=== PATIENT | male | born 1960 | race Caucasian/White ===

== ENCOUNTER 2023-08-22 18:16 | Emergency (ER) | payer MEDICARE, SELFPAY ==
--- NOTE | ~2023-08-22 | XR_ITS ---
EXAMINATION: XR chest 2V Exam Date/Time: 08/22/2023 18:55 CDT HISTORY: COUGH Comparison: None. RESULT: Lines, tubes, and devices: None. Lungs and pleura: Clear. Cardiomediastinal silhouette: Normal. Other: No acute osseous or upper abdominal finding. IMPRESSION: No acute cardiopulmonary process. Reviewed, dictated and finalized at location K.
[2023-08-22 18:27] VITALS: BP 134/88; PULSE 116; RESP 16; TEMP 37.2; O2SAT 100
--- NOTE | 2023-08-22 18:42 | ED.URI ---
HPI - URI/Sore Throat General Chief Complaint: Upper Respiratory Infection Stated Complaint: Sore Throat/Cough/Headache Time Seen by Provider: 08/22/23 18:40 Source: patient, RN notes reviewed and old records reviewed Mode of arrival: ambulatory Limitations: no limitations History of Present Illness HPI Narrative: 63 year old male who presents to [facility] care accompanied by with complaints of sore throat, cough, and headache since yesterday. Patient reports that he had a fever 101F earlier today but has not taken any medication with low grade temp only since awakening later in day. Patient has tight non- productive cough also. Patient reports that few weeks ago felt himself going in and out of a fib has cardiac history and stents. Patient reports that he has not felt those sensation lately does have cardiology appointment in 2 weeks. MD elicited complaint: cough and sore throat Onset (ago): day(s) (day 2 of symptoms) Pain scale (0-10): 2 Description of mucous: clear Treatments prior to arrival: none Related Data Home Medications Medication Instructions Recorded Confirmed aspirin 81 mg tablet,delayed 81 mg PO DAILY 03/16/23 08/22/23 release empagliflozin 25 mg tablet 25 mg PO DAILY 03/16/23 08/22/23 (Jardiance) insulin glargine U-300 conc 300 30 unit subcut DAILY 03/16/23 08/22/23 unit/mL (3 mL) subcutaneous pen (Toujeo Max U-300 SoloStar) lisinopril 5 mg tablet 5 mg PO DAILY 03/16/23 08/22/23 metoprolol succinate 50 mg capsule 50 mg PO DAILY 03/16/23 08/22/23 sprinkle, ext. release 24 hr multivitamin (Daily Multi-Vitamin 1 tablet PO DAILY 04/10/23 08/22/23 tablet) rivaroxaban 20 mg tablet (Xarelto) 20 mg PO DAILY 04/10/23 08/22/23 semaglutide 2 mg/dose (8 mg/3 mL) 2 mg subcut WEEKLY 04/28/23 08/22/23 subcutaneous pen injector (Ozempic) Allergies Allergy/AdvReac Type Severity Reaction Status Date / Time Penicillins Allergy Severe Anaphylaxis Verified 08/22/23 18:18 adhesive tape AdvReac Mild Rash Verified 08/22/23 18:18 Review of Systems Review of Systems: CONSTITUTIONAL: Reports malaise, chills, sweats, or fever. EYES: Denies visual changes, redness, or discharge. ENT: Reports rhinorrhea, congestion, sinus pain, no otalgia and positive for sore throat. CARDIOVASCULAR: Denies chest pain, palpitations, or edema. RESPIRATORY: Reports harsh cough.? Denies acute dyspnea. GASTROINTESTINAL: Denies abdominal pain, nausea, vomiting, diarrhea SKIN: Denies rash or itching. MUSCULOSKELETAL: Denies myalgia. NEUROLOGIC: Reports headache. All systems reviewed & are unremarkable except as noted in HPI and below PMFSH Past Medical History Medical History Anxiety Atrial fibrillation Congestive heart disease Coronary artery disease Diabetes DKA (diabetic ketoacidosis) GERD (gastroesophageal reflux disease) Heart attack Heart disease HTN (hypertension) Stenosis of coronary artery stent stented x 5 Surgical History Surgical History S/P ablation of atrial fibrillation x2 Family History Family History Father Alcoholism Heart disease Mother Diabetes mellitus Depression Cerebrovascular accident Social History Social History Smoking status: Former smoker Alcohol intake: current Drinks per week: 2 Alcohol use details: 2 x a yr Substance use: unknown Lack of Transportation: No Lack of Food: Never True Current Housing: I Have Housing Concerned About Future Housing: No Difficulty Paying Gas/Electric Bills: No Difficulty Paying for Meds: No Currently Unemployed: No Comments At time of signature, agree with nursing past medical, surgical, social and family history. There is no relevant family history pertinent to the present
== END 2023-08-22 19:34 | disposition home or self-care (01) ==
PROVIDERS: Emergency Provider Registered Nurse; PCP Family Medicine
DX: J06.9 Acute upper respiratory infection, unspecified (principal); I48.91 Unspecified atrial fibrillation; I25.10 Atherosclerotic heart disease of native coronary artery without angina pectoris; I25.2 Old myocardial infarction; I11.0 Hypertensive heart disease with heart failure; I50.9 Heart failure, unspecified; Z79.82 Long term (current) use of aspirin; Z79.4 Long term (current) use of insulin; Z79.899 Other long term (current) drug therapy; Z79.01 Long term (current) use of anticoagulants; Z87.891 Personal history of nicotine dependence; Z20.822 Contact with and (suspected) exposure to COVID-19
CPT/HCPCS: 71046; 87081; 87426; 87804; 87880; 99213; G0463

== ENCOUNTER 2023-09-14 10:08 | Outpatient (CLI) | payer MEDICARE, SELFPAY ==
[2023-09-16 10:29] LABS: Lead, Blood <1.0 mcg/dL (<3.5)
[2023-09-18 14:37] LABS: Collection Sample Venous
== END 2023-09-14 10:09 | disposition home or self-care (01) ==
PROVIDERS: PCP Family Medicine; Visit Provider Family Medicine
DX: Z77.011 Contact with and (suspected) exposure to lead (principal)
CPT/HCPCS: 36415; 83655

== ENCOUNTER 2023-10-04 08:56 | Outpatient (CLI) | payer MEDICARE, SELFPAY ==
--- NOTE | ~2023-10-04 | CT_ITS ---
CT Scan of the Chest without Contrast: Clinical Indication: Lung cancer screening, nicotine dependence Technique: Contiguous sections were acquired throughout the chest without intravenous contrast. Dose reduction technique was used on this scan by utilizing automated exposure control and iterative recon struction technique. The dose-length product (DLP) was 400.00 mGy-cm. Findings: There is no evidence of any significant mediastinal, hilar or axillary lymphadenopathy. Extensive cor onary artery calcifications are present. There is no evidence of pleural or pericardial effusion. The lungs are clear. No pulmonary nodules or infiltrates are noted. Images through the upper abdomen reveal no abnormalities. Impression: Lung RADS 1: Benign appearance. 12 month follow-up screening CT advised. Reviewed, dictated and finalized at location . Impression: Lung RADS 1: Benign appearance. 12 month follow-up screening CT advised.
== END 2023-10-04 08:57 | disposition home or self-care (01) ==
LOC: ANHIMG 08:58
PROVIDERS: PCP Family Medicine; Visit Provider Family Medicine
DX: Z12.2 Encounter for screening for malignant neoplasm of respiratory organs (principal); Z87.891 Personal history of nicotine dependence
CPT/HCPCS: 71271

== ENCOUNTER 2023-11-25 08:43 | Outpatient (CLI) | payer MEDICARE, SELFPAY ==
[2023-11-25 09:54] LABS: Alanine Aminotransferase 63 U/L (6-50); Albumin Level 4.8 g/dL (3.5-5.1); Alkaline Phosphatase 65 U/L (38-126); Anion Gap 12 mmol/L (4-12); Aspartate Amino Transferase 43 U/L (17-59); Bilirubin,Total 0.7 mg/dL (0.2-1.3); Blood Urea Nitrogen 14 mg/dL (9-20); Calcium 9.4 mg/dL (8.4-10.2); Carbon Dioxide 24 mmol/L (22-30); Chloride 105 mmol/L (98-107); Cholesterol 128 mg/dL (0-200); Estimated Glomerular Filt Rate > 60; Glucose 133 mg/dL (65-110); HDL Direct 37 mg/dL; Potassium 4.6 mmol/L (3.4-5.0); Sodium 141 mmol/L (137-145); Triglycerides 120 mg/dL (<150)
[2023-11-25 10:05] LABS: LDL Cholesterol Direct 81 mg/dL
[2023-11-25 10:09] LABS: Free T4 Free Thyroxine 0.87 ng/mL (0.78-2.19)
== END 2023-11-25 08:44 | disposition home or self-care (01) ==
LOC: ANHLAB 08:49
PROVIDERS: PCP Family Medicine; Visit Provider Internal Medicine
DX: E11.9 Type 2 diabetes mellitus without complications (principal); I25.10 Atherosclerotic heart disease of native coronary artery without angina pectoris; I10 Essential (primary) hypertension; I48.91 Unspecified atrial fibrillation; E78.2 Mixed hyperlipidemia
CPT/HCPCS: 36415; 80053; 80061; 82607; 84439; 84443

== ENCOUNTER 2024-03-20 12:44 | Outpatient (CLI) | payer OTHER, MEDICARE, SELFPAY ==
[2024-03-20 17:08] LABS: Alanine Aminotransferase 55 U/L (6-50); Albumin Level 4.8 g/dL (3.5-5.1); Alkaline Phosphatase 62 U/L (38-126); Anion Gap 10 mmol/L (4-12); Aspartate Amino Transferase 52 U/L (17-59); Blood Urea Nitrogen 16 mg/dL (9-20); Calcium 9.4 mg/dL (8.4-10.2); Carbon Dioxide 26 mmol/L (22-30); Chloride 99 mmol/L (98-107); Cholesterol 131 mg/dL (0-200); Estimated Glomerular Filt Rate > 60; Glucose 100 mg/dL (65-110); HDL Direct 33 mg/dL; Potassium 4.5 mmol/L (3.4-5.0); Sodium 135 mmol/L (137-145); Triglycerides 133 mg/dL (<150)
[2024-03-20 17:19] LABS: LDL Cholesterol Direct 63 mg/dL
[2024-03-20 17:21] LABS: Microalbumin Urine Random 7.8 mg/L (0-16.7)
[2024-03-20 17:23] LABS: Creatinine Urine 93.7 mg/dL; MALB Creatinine Ratio 8.3 mg/g (0-30)
[2024-03-20 17:25] LABS: Hemoglobin A1C 6.9 % (<5.7)
== END 2024-03-20 12:45 | disposition home or self-care (01) ==
LOC: ANHGOSHLAB 12:45
PROVIDERS: PCP Family Medicine; Visit Provider Family Medicine
DX: E11.9 Type 2 diabetes mellitus without complications (principal); R53.83 Other fatigue
CPT/HCPCS: 36415; 80053; 80061; 82043; 83036; 84443

== ENCOUNTER 2024-05-01 09:29 | Outpatient (CLI) | payer OTHER, MEDICARE, SELFPAY ==
--- NOTE | ~2024-05-01 | NM_ITS ---
EXAMINATION: NM haider stress w perfusion DATE: 05/01/2024 13:31 INDICATION: Chest pain TECHNIQUE: Rest images were obtained following intravenous administration of 8.5 mCi Tc99m tetrofosmi n (Myoview). The patient was infused intravenously with Lexiscan (Regadenoson). Then, 27.5 mCi Tc99m tetrofosmin (Myoview) was administered intravenously, and stress images were obtained initially in th e supine position with repeat post stress images obtained in the prone position. Data was reconstruct ed into short axis and horizontal and vertical long axis SPECT images. Gated SPECT images were also o btained. COMPARISON: None. FINDINGS: There is likely diaphragmatic attenuation artifact involving significant portions of the in ferior left ventricle on the rest and post stress images obtained in the supine position. This normal izes on the post stress images obtained in the prone position with no definitive perfusion defects to suggest ischemia or infarct. There is normal left ventricular chamber size, wall motion and ejectio n fraction. Left ventricular ejection fraction measures 62%. IMPRESSION: 1. Normal myocardial perfusion during stress on imaging obtained in the prone position. 2. Left ventricular ejection fraction measuring 62%. Reviewed, dictated and finalized at location B. L SANDER IMPRESSION: 1. Normal myocardial perfusion during stress on imaging obtained in the prone p osition. 2. Left ventricular ejection fraction measuring 62%.
--- NOTE | 2024-05-01 09:48 | ECHO_ITS ---
Patient Info Name: Jer Doyle Age: 63 years : 1960 Gender: Male Ht: 75 in Wt: 290 lbs BSA: 2.68 m2 HR: 66 bpm BP: 133 / 78 mmHg Heart Rhythm: Sinus Rhythm Technical Quality: Good Exam Date: 05/01/2024 10:03 AM Exam Location: Echo Lab Patient Status: Outpatient Admit Date: 05/01/2024 Staff Ordering Physician: Domenic Monae DO Signal Mechanic: Lee Arguelles RDCS Attending Provider: Domenic Monae DO Referring Physician: Dov OJEDA; Exam Type: CA echo doppler color flow Study Info Indications - other forms of dyspnea Complete two-dimensional, color flow and Doppler transthoracic echocardiogram is performed. Summary 1. Complete two-dimensional, color flow and Doppler transthoracic echocardiogram is performed. 2. Left ventricular chamber dimension is normal. 3. Left ventricular systolic function is normal, estimated at 55-60%. 4. There is mild concentric increased left ventricular wall thickness. 5. The left ventricular diastolic function is grade I diastolic dysfunction. 6. E/e' 5 is not elevated. 7. There is trace tricuspid valve regurgitation. 8. No pulmonary hypertension, estimated pulmonary arterial systolic pressure is 17 mmHg. Left Ventricle E/e' 5 is not elevated. Left ventricular chamber dimension is normal. Left ventricular systolic function is normal, estimated at 55-60%. There is mild concentric increased left ventricular wall thickness. The left ventricular diastolic function is grade I diastolic dysfunction. Right Ventricle Right ventricular systolic function is normal and with normal TAPSE 3.3 cm. Right ventricular chamber dimension is normal. Left Atria Left atrial chamber dimension is normal. Right Atria Right atrial chamber dimension is normal. Aortic Valve The aortic valve is trileaflet. There is no aortic valve stenosis. There is no aortic valve regurgitation. Pulmonic Valve There is no pulmonic regurgitation. Mitral Valve There is no mitral valve stenosis. There is no mitral valve regurgitation. Tricuspid Valve There is trace tricuspid valve regurgitation. No pulmonary hypertension, estimated pulmonary arterial systolic pressure is 17 mmHg. Pericardium/Pleural There is no pericardial effusion. Inferior Vena Cava Normal inferior vena cava with >50% collapse upon inspiration consistent with normal right atrial pressure, 5 mmHg. Aorta The aortic root size at the sinus of Valsalva is normal. Left Ventricular Outflow Tract Name Value Normal LVOT 2D LVOT Diameter 2.0 cm LVOT Doppler LVOT Peak Gradient 2 mmHg LVOT Mean Gradient 1 mmHg LVOT VTI 14 cm LVOT VTI/AV VTI Ratio 0.7 LVOT Stroke Volume 43 ml LVOT CO 3.5 l/min LVOT CI 1.3 l/min/m2 Pulmonic Valve Name Value Normal PV Doppler PV Peak Gradient 7 mmHg Mitral Valve Name Value Normal MV Doppler MV Decel [place] 306 cm/s2 MV PHT 51 ms MV Area (PHT) 4.3 cm2 4.0-5.0 MV Diastolic Function MV E Peak Velocity 54 cm/s MV A Peak Velocity 55 cm/s MV E/A 1.0 MV Decel Time 177 ms MV Annular TDI MV E/e' (Septal) 6.1 <=8.0 MV E/e' (Lateral) 5.5 <=8.0 MV E/e' (Average) 5.8 Tricuspid Valve Name Value Normal TV Regurgitation Doppler TR Peak Velocity 177 cm/s TR Peak Gradient 10 mmHg Estimated PAP/RSVP RA Pressure 5 mmHg <=5 PA Systolic Pressure 17 mmHg <36 RV Systolic Pressure 17 mmHg <36 Aortic Valve Name Value Normal AV Doppler AV Peak Velocity 99 cm/s AV Peak Gradient 4 mmHg AV Mean Gradient 2 mmHg AV VTI 19 cm AV Area (Cont Eq VTI) 2.2 cm2 >=3.0 AV Area (Cont Eq Siva) 2.3 cm2 AV Regurgitation 2D LVOT Area 3.1 cm2 Ventricles Name Value Normal LV Dimensions 2D/MM IVS Diastolic Thickness (2D) 1.2 cm 0.6-1.0 LVID Diastole (2D) 5.2 cm 4.2-5.8 LVIW Diastolic Thickness (2D) 1.1 cm 0.6-1.0 LVID Systole (2D) 3.4 cm 2.5-4.0 LVOT Diameter 2.0 cm LV Mass (2D Cubed) 238.50 g 88.00-224.00 LV Mass Index (2D Cubed) 89 g/m2 49-115 Relative Wall Thickness (2D) 0.43 LV Fractional Shortening/Ejection Fraction 2D/MM LV Fractional Shortening (2D) 34 % 25-43 LV EF (2D Teicholz) 63 % 52-72 LV Diastolic Volume (4C MOD) 108 ml LV EF (4C MOD) 57 % LV Diastolic Volume (2C MOD) 151 ml LV EF (2C MOD) 72 % LV Diastolic Volume (BP MOD) 129 ml 62-150 LV Diastolic Volume Index (BP MOD) 48 ml/m2 34-74 LV Systolic Volume (BP MOD) 45 ml 21-61 LV Systolic Volume Index (BP MOD) 17 ml/m2 11-31 LV EF (BP MOD) 65 % 52-72 LV Diastolic Length (4C) 8.3 cm LV Systolic Length (4C) 6.7 cm LV Stroke Volume (4C MOD) 62 ml Atria Name Value Normal LA Dimensions LA Volume (4C A-L) 38 ml LA Volume (BP A-L) 37 ml RA Dimensions RA Area (4C) 13.7 cm2 <=18.0 Report Signatures
--- NOTE | 2024-05-01 10:25 | EST_ITS ---
Patient Info Name: Jer Doyle Age: 63 years : 1960 Gender: Male Ht: 75 in Wt: 290 lbs BSA: 2.68 m2 HR: 87 bpm BP: 111 / 80 mmHg Exam Date: 05/01/2024 12:15 PM Exam Location: Echo Lab Patient Status: Outpatient Admit Date: 05/01/2024 Staff Ordering Physician: Domenic Monae DO Attending Provider: Domenic Monae DO Exercise Technologist: Makayla Denis DEL Exercise Physician: Domenic Monae DO Exam Type: CA stress haider w NM Study Info A regadenoson stress test was performed. Summary 1. 1. Negative lexiscan stress test for ischemic ST changes by ECG criteria. 2. 2. Stable hemodynamics throughout the test. 3. 3. Nuclear scan to follow and will be reported separately. Please correlate with it. 4. 4. Patient infomed of the above results. Protocol: Lexiscan Stress ECG Details Stage: REST Duration (min): 1 min : 28 sec HR (bpm): 86 SBP (mmHg): 111 DBP (mmHg): 80 Stage: REST Duration (min): 4 min : 21 sec HR (bpm): 83 SBP (mmHg): 111 DBP (mmHg): 80 Stage: STAGE 1 Duration (min): 1 min : 0 sec HR (bpm): 92 SBP (mmHg): 127 DBP (mmHg): 80 Stage: RECOVERY Duration (min): 1 min : 0 sec HR (bpm): 96 SBP (mmHg): 127 DBP (mmHg): 80 Stage: RECOVERY Duration (min): 2 min : 0 sec HR (bpm): 94 SBP (mmHg): 127 DBP (mmHg): 80 Stage: RECOVERY Duration (min): 3 min : 0 sec HR (bpm): 94 SBP (mmHg): 107 DBP (mmHg): 78 Stage: RECOVERY Duration (min): 3 min : 6 sec HR (bpm): 93 SBP (mmHg): 107 DBP (mmHg): 78 Rest HR: 83 bpm Peak HR: 100 bpm Rest Sys BP: 111 mmHg Peak Sys BP: 127 mmHg Max Pred HR: 159 bpm % Max Pred HR: 63 % Target HR: 135 bpm Max RPP: 12,700 bpm*mmHg Termination Reason: Completed protocol Cardiac Symptoms: Chest pain, Shortness of breath Total Time: 1 min : 0 sec Rest Monroy BP: 80 mmHg Peak [place]roy BP: 80 mmHg Total Dose: 0.4 mg Resting ECG Sinus rhythm, RBBB. Stress ECG No ST changes. Arrhythmias None. Report Signatures
== END 2024-05-01 09:30 | disposition home or self-care (01) ==
LOC: ANHCARD 09:30
PROVIDERS: PCP Family Medicine; Visit Provider Internal Medicine Cardiovascular Disease
DX: R07.9 Chest pain, unspecified (principal)
CPT/HCPCS: 78452; 93017; 93306; A9502; J2785